=== PATIENT | female | born 1980 | race Caucasian/White ===

== ENCOUNTER → 2017-12-04 | Outpatient (CLI) | payer BC ==
[~2017-12-04] MED LIST: IBUP800 PO; IRON18 MG PO; METF500 PO; Verotin-Gr Cap1 EACH PO
[2017-12-09 10:32] LABS: CHLAMYDIA TRACHOMATIS, NAA Negative (Negative); NEISSERIA GONORRHOEAE, NAA Negative (Negative)
== END | disposition home or self-care (01) ==
LOC: LAB SHORT 15:56 → LAB 15:56
PROVIDERS: Obstetrics & Gynecology
DX: Z11.3 Encounter for screening for infections with a predominantly sexual mode of transmission (principal)
CPT/HCPCS: 87491; 87591

== ENCOUNTER → 2018-08-19 | Outpatient (CLI) | payer BC | LOC: LAB SHORT 08:11 → PLD 08:11 | DX: D48.5 Neoplasm of uncertain behavior of skin (principal) | CPT/HCPCS: 88305 ==